=== PATIENT | male | born 1985 ===

== ENCOUNTER 2021-08-10 15:47 | Emergency (ER) | payer SELFPAY ==
[~2021-08-10] VITALS: Ht 165.1 cm; Wt 68.0 kg
[2021-08-10 16:35] VITALS: BP 137/72
== END 2021-08-10 20:21 | disposition left against medical advice (07) ==
LOC: EMS 15:47
DX: R05.9 Cough, unspecified (principal); Z53.21 Procedure and treatment not carried out due to patient leaving prior to being seen by health care provider